=== PATIENT | female | born 1950 ===

== ENCOUNTER 2024-10-31 07:00 | Inpatient (IN) | payer OTHER ==
[~2024-10-31] VITALS: Ht 160 cm; Wt 95.3 kg
[2024-10-31 08:24] VITALS: BP 136/84
[2024-10-31] MEDS ORDERED: OMEPRAZOLE MAGN20 MG (08:27)
[2024-10-31] MEDS ORDERED: BENICAR HCT 201 EACH (08:27)
[2024-10-31 08:36] LABS: HEMATOCRIT 36.3 % (36.0-45.00); HEMOGLOBIN 12.4 g/dL (12.0-15.00); MEAN CELL VOLUME 85.4 fL (80.00-100.00); MEAN CORPUSCULAR HEMOGLOBIN 29.3 pg (27.00-32.0); MEAN CORPUSCULAR HGB CONC 34.2 g/dl (32.0-36.0); PLATELET COUNT 260 K/uL (150-450); RED BLOOD COUNT 4.25 M/uL (4.00-6.00); RED CELL DISTRIBUTION WIDTH 13.8 % (11.5-14.5)
[2024-10-31 09:00] LABS: INR 1.13; PARTIAL THROMBOPLASTIN TIME 26.7 SECONDS (22.0-34.0)
[2024-10-31 09:08] LABS: URINE APPEARANCE Cloudy; URINE BILIRRUBIN Negative (NEGATIVE); URINE BLOOD Moderate; URINE COLOR Yellow; URINE GLUCOSE Negative (NEGATIVE); URINE KETONE Negative (NEGATIVE); URINE LEUKOCYTE Moderate; URINE NITRATE Negative; URINE PROTEIN 30 (NEGATIVE)
[2024-10-31 09:18] LABS: PROTHROMBIN TIME 12.2 SECONDS (9.0-11.5)
[2024-10-31 09:21] LABS: URINE EPITHELIAL CELLS 28.3 uL (0.0-38.8); URINE RBC 205.4 uL (0.0-20.8); URINE WBC 806.4 uL (0.0-23.2)
[2024-10-31 09:25] LABS: URINE BACTERIA > 9821.5 uL (0.0-1933); URINE CAST 0.88 uL (0.0-1.40)
[2024-10-31 09:31] LABS: ALBUMIN 3.6 gm/dL (3.4-5.0); BILIRUBIN TOTAL 0.75 mg/dL (0.3-1.2); CALCIUM 9.3 mg/dL (8.5-10.1); CREATININE SERUM 0.55 mg/dL (0.55-1.02); GFR 108.65; GLOBULINA 3.1 G/DL (2.4-3.5); POTASSIUM 3.14 mEq/L (3.5-5.1); TOTAL PROTEIN 6.7 gm/dL (6.4-8.2)
[2024-10-31 09:57] LABS: RH POSITIVE
[2024-11-06] MEDS ORDERED: ENALAPRILAT DIHYDRATE 1.25 MG/ML VIAL IV PRN (15:45)
[2024-11-06] MEDS ORDERED: CEFAZOLIN SODIUM 1,000 MG VIAL ONE (16:52)
[2024-11-06] MEDS ORDERED: BUPIVACAINE HCL/MPF 0.5% 30ML VIAL ONE (19:17)
[2024-11-06] MEDS ORDERED: LIDOCAINE HCL 1%/EPINEPHRINE 20ML VIAL IJ ONE (19:17)
[2024-11-06] MEDS ORDERED: KETOROLAC TROMETHAMINE 60 MG VIAL IM ONE (19:17)
[2024-11-06] MEDS ORDERED: TRANEXAMIC ACID 100MG/1ML (1000MG) AMPUL IV ONE (19:18)
[2024-11-06] MEDS ORDERED: ISOPROPYL ALCOHOL 30 ML OUNCE TOP ONE (19:18)
[2024-11-06] MEDS ORDERED: VANCOMYCIN HCL 1,000 MG VIAL ONE (20:11)
[2024-11-06] MEDS ORDERED: FAMOTIDINE/PF 20 MG in 0.9 % SODIUM CHLORIDE 8 ML IV PUSH SCH (21:00)
[2024-11-06] MEDS ORDERED: OxyCODONE HCL 5 MG TABLET (ROXICODONE) PO PRN (21:30)
[2024-11-06] MEDS ORDERED: MORPHINE SULFATE 4 MG/ML CARTRIDGE IV PRN (21:30)
[2024-11-06] MEDS ORDERED: ONDANSETRON HCL 2 MG/ML VIAL IV PRN (21:30)
[2024-11-06] MEDS ORDERED: SODIUM CHLORIDE 0.45 % 1,000 ML IV SCH (21:30)
[2024-11-06] MEDS ORDERED: MORPHINE SULFATE 4 MG/ML VIAL IV ONE (22:35)
[2024-11-06] MEDS ORDERED: FAMOTIDINE/PF 20 MG/2 ML VIAL ONE (22:37)
[2024-11-07] MEDS ORDERED: ACETAMINOPHEN 500 MG GEL..CAP PO SCH
[2024-11-07] MEDS ORDERED: GABAPENTIN 300 MG CAPSULE PO SCH (01:00)
[2024-11-07] MEDS ORDERED: CEFAZOLIN SODIUM 1,000 MG VIAL IV SCH (01:00)
[2024-11-07] MEDS ORDERED: GABAPENTIN 300 MG CAPSULE PO ONE ×2 (01:31→07:48)
[2024-11-07] MEDS ORDERED: CEFAZOLIN SODIUM 1,000 MG VIAL ONE ×2 (01:31→07:48)
[2024-11-07] MEDS ORDERED: ACETAMINOPHEN 500 MG GEL..CAP PO ONE ×3 (01:31→12:40)
[2024-11-07 06:46] LABS: HEMATOCRIT 33.3 % (36.0-45.00); HEMOGLOBIN 11.3 g/dL (12.0-15.00); MEAN CELL VOLUME 86.2 fL (80.00-100.00); MEAN CORPUSCULAR HEMOGLOBIN 29.1 pg (27.00-32.0); MEAN CORPUSCULAR HGB CONC 33.8 g/dl (32.0-36.0); PLATELET COUNT 224 K/uL (150-450); RED BLOOD COUNT 3.87 M/uL (4.00-6.00); RED CELL DISTRIBUTION WIDTH 13.5 % (11.5-14.5)
[2024-11-07] MEDS ORDERED: FAMOTIDINE/PF 20 MG/2 ML VIAL ONE ×2 (07:48→16:15)
[2024-11-07] MEDS ORDERED: ELIQUIS2.5 MG PO (08:42)
[2024-11-07] MEDS ORDERED: DUI500 PO (08:42)
[2024-11-07] MEDS ORDERED: PERCOCET 5-3251 EACH PO (08:42)
[2024-11-07] MEDS ORDERED: SENNOSIDES 1 TAB TABLET PO SCH (09:00)
[2024-11-07] MEDS ORDERED: APIXABAN 2.5 MG TABLET PO SCH (09:00)
[2024-11-07 19:46] VITALS: BP 130/71; O2SAT 98
[2024-11-08 02:36] VITALS: BP 154/77; O2SAT 100
[2024-11-08 07:00] LABS: HEMATOCRIT 32.6 % (36.0-45.00); HEMOGLOBIN 11.5 g/dL (12.0-15.00); MEAN CELL VOLUME 85.3 fL (80.00-100.00); MEAN CORPUSCULAR HGB CONC 35.2 g/dl (32.0-36.0); PLATELET COUNT 214 K/uL (150-450); RED BLOOD COUNT 3.82 M/uL (4.00-6.00); RED CELL DISTRIBUTION WIDTH 13.7 % (11.5-14.5)
[2024-11-08 08:00] VITALS: BP 178/81; O2SAT 99
[2024-11-08] MEDS ORDERED: IRON FUM,PS/FOLIC ACID/VITC/B3 1 CAP CAPSULE PO SCH (09:00)
[2024-11-08 17:24] VITALS: BP 112/56; O2SAT 99
== END 2024-11-08 19:33 | DRG 470 ==
LOC: SURH 11-06 07:00 → O/R 11-06 15:07 → SURH 11-06 19:00 → OB/GYN 11-06 22:45 → O/R 11-06 23:05 → SURG 11-07 11:59
PROVIDERS: ADMIT Orthopaedic Surgery; ATTEND Orthopaedic Surgery
PROC: 0MNP0ZZ Release Left Knee Bursa and Ligament, Open Approach (ICD-10-PCS; 2024-11-06)
PROC: 0SUD07Z Supplement Left Knee Joint with Autologous Tissue Substitute, Open Approach (ICD-10-PCS; 2024-11-06)
PROC: 0SRD0J9 Replacement of Left Knee Joint with Synthetic Substitute, Cemented, Open Approach (ICD-10-PCS; principal; 2024-11-06 19:00)
DX: M17.12 Unilateral primary osteoarthritis, left knee (principal); I10 Essential (primary) hypertension; E66.09 Other obesity due to excess calories